=== PATIENT | male | born 1985 | race Hispanic/Latino ===

== ENCOUNTER 2020-10-03 21:16 | Emergency (ER) | payer SELFPAY ==
[~2020-10-03] VITALS: Ht 157.5 cm; Wt 77.1 kg
[2020-10-03] MEDS ORDERED: KETOROLAC TROMETHAMINE 30 MG/ML VIAL IV STA (21:47)
== END 2020-10-03 23:31 | disposition home or self-care (01) ==
LOC: ER 21:48
DX: R07.89 Other chest pain (principal); R05 Cough; J45.909 Unspecified asthma, uncomplicated; R94.31 Abnormal electrocardiogram [ECG] [EKG]; F17.210 Nicotine dependence, cigarettes, uncomplicated
CPT/HCPCS: 71101; 93005; 99283; J1885

== ENCOUNTER 2021-01-05 22:00 | Emergency (ER) | payer SELFPAY | END 2021-01-06 01:51 | disposition home or self-care (01) | LOC: ER 22:40 | DX: R10.32 Left lower quadrant pain (principal); S39.011A Strain of muscle, fascia and tendon of abdomen, initial encounter; X50.0XXA Overexertion from strenuous movement or load, initial encounter; L72.9 Follicular cyst of the skin and subcutaneous tissue, unspecified | CPT/HCPCS: 99282 ==

== ENCOUNTER 2021-06-01 20:43 | Emergency (ER) | payer SELFPAY ==
[~2021-06-01] VITALS: Ht 157.5 cm; Wt 83.5 kg
[2021-06-01] MEDS ORDERED: HYDROCODONE/APAP 7.5MG-325MG 1 EA TAB PO ONE (21:15)
[2021-06-01 21:29] LABS: BASOPHILS # (AUTO) 0.1 (0.0-0.1); BASOPHILS % 0.6 % (0.0-1.0); EOSINOPHILS # (AUTO) 0.2 (0.0-0.4); EOSINOPHILS % 2.2 % (0.0-6.0); HEMATOCRIT 44.6 % (38.2-49.6); HEMOGLOBIN 15.3 g/dL (14.0-18.0); LYMPHOCYTES # (AUTO) 2.2 (1.0-3.2); MEAN CORPUSCULAR HEMOGLOBIN 30.3 pg (28-32); MEAN CORPUSCULAR HGB CONC 34.3 g/dL (31-35); MEAN CORPUSCULAR VOLUME 88.3 fL (81-99); MONOCYTES # (AUTO) 0.5 (0.2-0.8); MONOCYTES % 5.4 % (4.4-11.3); NEUTROPHILS # (AUTO) 6.3 (2.1-6.9); NEUTROPHILS % 67.4 % (38.7-80.0); PLATELET COUNT 347 x10e3/uL (140-360); RED BLOOD COUNT 5.05 x10e6/uL (4.3-5.7); RED CELL DISTRIBUTION WIDTH 12.4 % (11.7-14.4)
[2021-06-01 21:47] LABS: ANION GAP 15.6 mmol/L (8-16); CALCIUM 9.2 mg/dL (8.4-10.2); CREATININE, SERUM 1.04 mg/dL (0.72-1.25); POTASSIUM 3.6 mmol/L (3.5-5.1)
[2021-06-01 21:55] LABS: CREATINE KINASE MB 0.9 ng/mL (0-5.0)
[2021-06-01] MEDS ORDERED: NAPROSYN500 MG PO (23:22)
[2021-06-01] MEDS ORDERED: CYCLOBENZAPRINE5 MG PO (23:22)
[2021-06-02 00:13] VITALS: BP 117/78
== END 2021-06-02 | disposition home or self-care (01) ==
LOC: ER 21:07
DX: M79.602 Pain in left arm (principal); E11.65 Type 2 diabetes mellitus with hyperglycemia; J45.909 Unspecified asthma, uncomplicated; F17.210 Nicotine dependence, cigarettes, uncomplicated
CPT/HCPCS: 36415; 80048; 82550; 82553; 84484; 85025; 93005; 93971; 99284

== ENCOUNTER 2021-06-04 18:35 | Emergency (ER) | payer SELFPAY ==
[~2021-06-04] VITALS: Ht 157.5 cm; Wt 83.5 kg
[~2021-06-04 18:35] MED LIST: CYCLOBENZAPRINE5 MG PO; NAPROSYN500 MG PO
[2021-06-04] MEDS ORDERED: CEPHALEXIN 500 MG CAP PO STA (19:32)
[2021-06-04] MEDS ORDERED: ULTRAM 50MG50 MG PO (21:01)
[2021-06-04] MEDS ORDERED: CEPHALEXIN500 MG PO (21:01)
== END 2021-06-04 21:11 | disposition home or self-care (01) ==
LOC: ER 18:45
DX: M79.622 Pain in left upper arm (principal); L03.114 Cellulitis of left upper limb; H01.004 Unspecified blepharitis left upper eyelid
CPT/HCPCS: 93971; 99283